=== PATIENT | female | born 1930 | race Caucasian/White ===

== ENCOUNTER 2016-05-14 09:53 | Outpatient (CLI) ==
[2015-05-07 02:30] VITALS: BMI 21.6
[2016-05-14 10:25] LABS: BILIRUBIN,URINE Negative (NEGATIVE); KETONES,URINE Negative (NEGATIVE); LEUKOCYTE ESTERASE ,URINE Trace (NEGATIVE); NITRITE,URINE Negative (NEGATIVE); PROTEIN,URINE Negative (NEGATIVE); URINE, BLOOD Negative (NEGATIVE)
[2016-05-14 10:27] LABS: ADD URINE MICROSCOPIC YES; BACTERIA,URINE TRACE (NOT PRESENT)
== END 2016-05-14 09:54 | disposition home or self-care (01) ==
LOC: NONPT 09:53
PROVIDERS: ATTEND Family Medicine
DX: N39.0 Urinary tract infection, site not specified (principal)
CPT/HCPCS: 81001

== ENCOUNTER 2016-05-16 15:22 | Inpatient (IN) ==
--- NOTE | 2016-05-16 15:47 | ED.PDOC ---
General ED Provider: Dr. SHIVANI TEJEDA Chief Complaint: Altered Mental Status Stated Complaint: mckayla is a shelter residetnt who was noted by staff with decreased mentation. This has been happenig over the last 3 weeks. Although yeterday she seemed alert but overall has been delicing. Family are now more open to hospice.She has recently been treated for UTI with rocephine. Her po intake has decraseed Time Seen by Physician: 15:42 Information Source: Family, [facility], EMT Exam Limitations: No limitations Primary Care Provider: FARRUKH LUIS Nursing and Triage Documentation Reviewed and Agree: Yes Neurological Complaint Exam - Weakness Complaint/Exam Last Known Well: 3 weeks ago Onset: Gradual Duration: 1-2 days Symptoms Are: Still present Timing: Constant Character: Reports: Unable to describe Associated Signs and Symptoms: Reports: Nausea. Denies: Vomiting Cardiac Risk Factors: Denies: Hypertension, Smoking CVA Risk Factors: Reports: Hypertension Glascow Coma Scale (see protocol): 9 Nystagmus Present: No Gag Reflex Present: Yes Focal Weakness: Present: None Differential Diagnoses: Other (CVA) Quality Indicator For Non-Traumatic Chest Pain/Syncope: EKG Performed Review of Systems - Review Of Systems Constitutional: Reports: Malaise, Weakness All Other Systems: Other (limited due to condition.) Past Medical History - Past Medical History Endocrine: Reports: None, Other (osteoporosis with fractures at age 44) Cardiovascular: Reports: Hypertension, A-Fib, Other ( pulmonary htn, syncope, bradycardia, cardiomegaly) Respiratory: Reports: None Hematological: Reports: None Gastrointestinal: Reports: None Genitourinary: Reports: UTI Neuro/Psych: Reports: TIA, CVA (3yrs ago2 yearas ago- poor speech since first episode, worse after each subsequesnt has had one sided weaknes?side is improved) Musculoskeletal: Reports: Arthritis Cancer: Reports: None Last Menstrual Period: menopause Other Pertinent Past Medical History: weakness, confusion - Surgical History General Surgical History: Reports: Hysterectomy - Family History Family History: Reports: Unknown - Social History Smoking Status: Never smoker Hx Substance Use: No Alcohol Screening: None Physical Exam - Physical Exam Appearance: Ill-appearing Ill-appearing: Moderate Eyes: DEWAYNE Neck: Supple Respiratory: Airway patent, Breath sounds clear, Breath sounds equal Cardiovascular: Tachycardia, Murmur GI/: Soft Musculoskeletal: Limited ROM Neurological: Alert to pain Physician Notification - Case Discussed Physician Notified: Dr Luis Time of Notification: 19:00 (ok to admit to the floor. ) Critical Care Note - Critical Care Note Total Time (mins): 45 Course - Course Hematology/Chemistry: 05/16/16 16:18 05/22/16 05:30 Orders, Labs, Meds: Lab Review 05/16/16 05/16/16 16:18 16:35 WBC 8.77 RBC 4.96 Hgb 15.6 Hct 50.7 H MCV 102.2 H MCH 31.5 H MCHC 30.8 L RDW Coeff of Jillian 17.2 H Plt Count 130 L Immature Gran % (Auto) 0.3 Neut % (Auto) 75.3 Lymph % (Auto) 16.3 [place] % (Auto) 6.8 Eos % (Auto) 0.7 Baso % (Auto) 0.6 Immature Gran # (Auto) 0.0 Neut # 6.6 Lymph # 1.4 [place] # 0.6 Eos # 0.1 Baso # 0.1 Sodium 158 H Potassium 7.9 H* Chloride 124 H Carbon Dioxide 26 Anion Gap 15.9 BUN 41 H Creatinine 0.92 Estimated GFR (MDRD) 58.00 BUN/Creatinine Ratio 44.56 Glucose 107 Calcium 10.4 H Total Bilirubin 0.83 AST 55 H ALT 37 Alkaline Phosphatase 111 Total Protein 7.9 Albumin 3.6 Globulin 4.3 Albumin/Globulin Ratio 0.84 Urine Color Yellow Urine Clarity Turbid Urine pH 7.0 Ur Specific Kimmell 1.025 Urine Protein 1+ Urine Glucose (UA) Negative Urine Ketones Trace Urine Blood 2+ Urine Nitrite Negative Urine Bilirubin 1+ Urine Urobilinogen 0.2 Ur Leukocyte Esterase 3+ Urine Microscopic RBC 5-10 Urine Microscopic WBC Tntc Ur Squamous Epith Cells Not present Amorphous Sediment 2+ Urine Bacteria 2+ Orders Category Date Time Status EKG-(ED ONLY) Stat CARDIO 05/16/16 17:04 Completed NEBULIZER TREATMENT Stat CARDIO 05/16/16 17:12 Completed ED CATHETER INSERTION AND CARE .ONCE EMERGENCY 05/16/16 16:13 Completed ED IV/MEDIPORT/POWERPORT .ONCE EMERGENCY 05/16/16 16:13 Completed CBC W/ AUTO DIFF Stat LAB 05/16/16 16:18 Completed COMPREHENSIVE METABOLIC PANEL Stat LAB 05/16/16 16:18 Completed URINALYSIS C & S IF INDICATED Stat LAB 05/16/16 16:35 Completed URINE CULTURE Stat LAB 05/16/16 16:35 Completed 0.9 % Sodium Chloride [Saline Flush] MEDS 05/16/16 16:13 Active 1 syr IVF PRN PRN Albuterol Sulfate 0.083% Neb [Albuterol 0.083% Neb] MEDS 05/16/16 17:12 Discontinued 1 vial NEB ONCE STA Piperacillin Sodium/Tazobactam [Zosyn] 2.25 gm MEDS 05/16/16 18:07 Discontinued 0.9 % Sodium Chloride [Sodium Chloride] 100 ml IV ONCE Sodium Chloride 0.9% [Sodium Chloride] 1,000 ml MEDS 05/16/16 16:13 Discontinued IV BOLUS Medications Generic Name Dose Route Start Last Admin Trade Name Freq PRN Reason Stop Dose Admin Acetaminophen/Hydrocodone Bitart 1 tab 05/16/16 21:51 05/21/16 20:20 Charlotte 5-325 PO 1 tab TID FLAKO Administration Amlodipine Besylate 2.5 mg 05/17/16 09:00 05/21/16 08:56 Norvasc PO 2.5 mg DAILY FLAKO Administration Bisacodyl 5 mg 05/17/16 09:00 05/21/16 08:56 Dulcolax PO 5 mg DAILY FLAKO Administration Calcium/Vitamin D 1 each 05/17/16 09:00 05/21/16 20:20 Calcium 500 + Vit D 200 Mg Tablet PO 1 each BID FLAKO Administration Furosemide 20 mg 05/16/16 22:05 Lasix Tab PO DAILY PRN EDEMA Gabapentin 100 mg 05/16/16 22:30 05/21/16 20:20 Neurontin PO 100 mg BEDTIME FLAKO Administration Potassium Chloride/Dextrose/Sod Cl 1,000 mls @ 125 mls/hr 05/18/16 12:00 03:36 D5%-1/2ns-Kcl 20 Meq/L Iv Lisa IV 125 mls/hr .Q8H FLAKO Administration Ampicillin Sodium 2 gm/ Sodium 100 mls @ 100 mls/hr 05/20/16 18:00 05/22/16 05:44 Chloride IV 100 mls/hr Q6HR FLAKO Administration Lisinopril 20 mg 05/17/16 09:00 05/21/16 08:55 Zestril PO 20 mg DAILY FLAKO Administration Magnesium Hydroxide 30 ml 05/16/16 19:19 Milk Of Magnesia PO DAILY PRN Constipation Ondansetron HCl 4 mg 05/16/16 19:07 Zofran 4 Mg/2 Ml IVP Q6H PRN Nausea / Vomiting Paroxetine HCl 20 mg 05/17/16 09:00 05/21/16 08:56 Paxil PO 20 mg DAILY FLAKO Administration Polyethylene Glycol 17 gm 05/16/16 19:19 Miralax PO DAILY PRN Constipation Rivaroxaban 15 mg 05/20/16 16:00 05/21/16 16:58 Xarelto PO 15 mg QPM FLAKO Administration Sodium Chloride 1 syr 05/16/16 16:13 05/18/16 11:32 Saline Flush IVF 1 syr PRN PRN Administration To flush IV Discontinued Medications Generic Name Dose Route Start Last Admin Trade Name Freq PRN Reason Stop Dose Admin Acetaminophen/Hydrocodone Bitart tab 05/16/16 21:00 Charlotte 5-325 PO TID FLAKO Albuterol Sulfate 1 vial 05/16/16 17:12 05/16/16 17:30 Albuterol 0.083% Neb NEB 05/16/16 17:13 1 vial ONCE STA Administration Sodium Chloride 1,000 mls @ 1,000 mls/hr 05/16/16 16:13 05/16/16 17:06 Sodium Chloride IV 05/16/16 17:12 150 mls/hr BOLUS STA Administration Piperacillin Sod/Tazobactam 100 mls @ 100 mls/hr 05/16/16 18:07 05/16/16 18: 24 Sod 2.25 gm/ Sodium Chloride IV 05/16/16 19:06 100 mls/hr ONCE STA Administration Dextrose/Sodium Chloride 1,000 mls @ 125 mls/hr 05/16/16 19:16 05/16/16 21:50 Dextrose 5%-1/2ns Iv Solution IV 05/17/16 03:15 125 mls/hr .Q8H STA Administration Piperacillin Sod/Tazobactam 100 mls @ 100 mls/hr 05/16/16 21:00 05/17/16 09: 32 Sod 2.25 gm/ Sodium Chloride IV Not Given Q8HR FLAKO Piperacillin Sod/Tazobactam 100 mls @ 100 mls/hr 05/17/16 07:30 05/19/16 11: 20 Sod 2.25 gm/ Sodium Chloride IV 100 mls/hr Q6HR FLAKO Administration Piperacillin Sod/Tazobactam 100 mls @ 100 mls/hr 05/19/16 18:00 05/20/16 11: 58 Sod 3.375 gm/ Sodium Chloride IV 100 mls/hr Q6HR FLAKO Administration Lidocaine HCl 0.02 ml 05/18/16 18:33 05/18/16 20:13 Lidocaine 1 % Amp 5 Ml (Sutures) ID 05/18/16 18:34 Not Given ONCE STA Vital Signs: Temp Pulse Resp BP Pulse Ox 05/16/16 15:22 98.3 F 107 H 16 93/70 93 L Departure - Departure Time of Disposition: 19:25 Disposition: ADMITTED INPATIENT Discharge Problem: Hyperkalemia, Dehydration UTI (urinary tract infection) Qualifiers: Urinary tract infection type: acute cystitis Hematuria presence: without hematuria Qualifier Code: (N30.00) Acute cystitis without hematuria Condition: Poor Pt referred to PMD for follow-up: No (admitted ) Allergies/Adverse Reactions: Allergies isradipine [From DynaCirc] Adverse Reaction (Verified 05/16/16 15:35) levofloxacin [From Levaquin] Adverse Reaction (Verified 05/16/16 15:35) sulfamethoxazole [From Bactrim] Adverse Reaction (Verified 05/16/16 15:35) trimethoprim [From Bactrim] Adverse Reaction (Verified 05/16/16 15:35) Home Medications: Ambulatory Orders Amlodipine Besylate [Norvasc] 2.5 mg PO DAILY 05/07/14 Bisacodyl [Dulcolax] 5 mg PO DAILY 05/07/14 Magnesium Hydroxide [Milk of Magnesia] 30 ml PO DAILY PRN 05/07/14 Ondansetron HCl [Zofran] 4 mg PO Q4H PRN 05/07/14 Calcium Carbonate/Vitamin D3 [Caltrate 600 Plus D3 Tablet] 1 each PO BID #30 Furosemide [Lasix Tab] 20 mg PO QDAC #30 05/12/14 Gabapentin [Neurontin] 100 mg PO BEDTIME #30 05/12/14 Lisinopril [Zestril] 20 mg PO DAILY #30 05/12/14 Potassium Chloride [Micro-K Cap] 30 meq PO DAILY #45 05/12/14 Hydrocodone/Acetaminophen [Charlotte 5-325 Tablet] 5 mg PO TID 01/24/15 Paroxetine HCl [Paxil] 20 mg PO DAILY 01/24/15 Polyethylene Glycol 3350 [Miralax] 17 gm PO DAILY PRN 05/16/16 Rivaroxaban [Xarelto] 15 mg PO DAILY 05/16/16 Disposition Discussed With: Family
[2016-05-16] MEDS ORDERED: SODIUM CHLORIDE 1,000 ML IV STA (16:13)
[2016-05-16] MEDS ORDERED: URO-JET MUCOUSMEMB STA (16:13)
[2016-05-16 16:40] LABS: BASOPHILS # (AUTO) 0.1 K/uL (0-0.2); BASOPHILS % (AUTO) 0.6 % (0.0-3.0); EOSINOPHILS # (AUTO) 0.1 K/ul (0.0-0.7); EOSINOPHILS % (AUTO) 0.7 % (0.0-7.0); HEMATOCRIT 50.7 % (37.0-47.0); HEMOGLOBIN 15.6 g/dl (12.0-16.0); IMMATURE GRANULOCYTE % (AUTO) 0.3 % (0.0-5.0); LYMPHOCYTES # (AUTO) 1.4 K/uL (0.60-3.4); LYMPHOCYTES % (AUTO) 16.3 (10.0-50.0); MEAN CORPUSCULAR HEMOGLOBIN 31.5 pg (27.0-31.0); MEAN CORPUSCULAR HGB CONC 30.8 (31.8-35.4); MEAN CORPUSCULAR VOLUME 102.2 fl (81.0-99.0); MONOCYTES # (AUTO) 0.6 K/uL (0.4-2.0); MONOCYTES % (AUTO) 6.8 (0-10); NEUTROPHILS # (AUTO) 6.6 K/ul (2.0-6.9); NEUTROPHILS % (AUTO) 75.3; PLATELET COUNT 130 10^3/uL (140-440); RED BLOOD COUNT 4.96 10^6/ul (4.20-5.40); WHITE BLOOD COUNT 8.77 K/ul (4.6-10.2)
[2016-05-16 16:52] LABS: ALBUMIN 3.6 g/dL (3.4-5.0); ALBUMIN/GLOBULIN RATIO 0.84; ANION GAP 15.9; BILIRUBIN,TOTAL 0.83 mg/dL (0.00-1.20); BUN/CREATININE RATIO 44.56; CALCIUM 10.4 mg/dL (8.2-10.2); CREATININE 0.92 mg/dL (0.60-1.30); TOTAL PROTEIN 7.9 g/dL (5.8-8.1)
[2016-05-16 16:55] LABS: POTASSIUM 7.9 mmol/L (3.5-5.10)
[2016-05-16 17:03] LABS: BILIRUBIN,URINE 1+ (NEGATIVE); KETONES,URINE Trace (NEGATIVE); LEUKOCYTE ESTERASE ,URINE 3+ (NEGATIVE); NITRITE,URINE Negative (NEGATIVE); PROTEIN,URINE 1+ (NEGATIVE); URINE, BLOOD 2+ (NEGATIVE)
[2016-05-16] MEDS ORDERED: DUONEB NEB STA (17:04)
[2016-05-16 17:06] LABS: ADD URINE MICROSCOPIC YES; BACTERIA,URINE 2+ (NOT PRESENT)
[2016-05-16] MEDS ORDERED: ALBUTEROL 0.083% NEB NEB STA (17:12)
[2016-05-16] MEDS ORDERED: ZOSYN 2.25 GM 2.25 GM in SODIUM CHLORIDE 100 ML IV STA (18:07)
[2016-05-16] MEDS ORDERED: ZOFRAN 4 MG/2 ML IVP PRN (19:07)
[2016-05-16] MEDS ORDERED: DEXTROSE 5%-1/2NS IV SOLUTION 1,000 ML IV STA (19:16)
[2016-05-16] MEDS ORDERED: MIRALAX PO PRN (19:19)
[2016-05-16] MEDS ORDERED: MILK OF MAGNESIA PO PRN (19:19)
[2016-05-16] MEDS ORDERED: NORCO 5-325 PO SCH (21:00)
[2016-05-16] MEDS ORDERED: LASIX TAB PO PRN (22:05)
[2016-05-16] MEDS: ZOSYN 2.25 GM 2.25 GM in SODIUM CHLORIDE 100 ML IV SCH (23:38)
[2016-05-17] MEDS ORDERED: CALCIUM 500 + VIT D 200 MG TABLET ONE (00:26)
[2016-05-17] MEDS: NEURONTIN PO SCH ×2 (00:37→22:25)
[2016-05-17] MEDS: NORCO 5-325 PO SCH ×4 (00:39→22:25)
[2016-05-17 01:50] VITALS: BMI 15.5
[2016-05-17 05:47] LABS: ANION GAP 11.2; BUN/CREATININE RATIO 54.05; CREATININE 0.74 mg/dL (0.60-1.30); POTASSIUM 4.2 mmol/L (3.5-5.10)
[2016-05-17] MEDS: ZOSYN 2.25 GM 2.25 GM in SODIUM CHLORIDE 100 ML IV SCH ×4 (08:00→17:53)
[2016-05-17] MEDS ORDERED: NON-FORMULARY MEDICATION (Calcium Carbonate/Vitamin D3 [Caltrate 600 Plus D3 Tablet] 1 EAC PO SCH (09:00)
[2016-05-17] MEDS ORDERED: NON-FORMULARY MEDICATION (Lisinopril [Zestril] 20 MG) PO SCH ×22 (09:00)
[2016-05-17] MEDS: DULCOLAX PO SCH (13:19)
[2016-05-17] MEDS: CALCIUM 500 + VIT D 200 MG TABLET PO SCH ×2 (13:19→22:25)
[2016-05-17] MEDS: NORVASC PO SCH (13:20)
[2016-05-17] MEDS: PAXIL PO SCH (13:21)
[2016-05-17] MEDS: ZESTRIL PO SCH (13:21)
[2016-05-18] MEDS: ZOSYN 2.25 GM 2.25 GM in SODIUM CHLORIDE 100 ML IV SCH ×5 (00:42→23:29)
[2016-05-18 05:35] LABS: ANION GAP 11.4; BUN/CREATININE RATIO 42.18; CALCIUM 8.9 mg/dL (8.2-10.2); CREATININE 0.64 mg/dL (0.60-1.30); POTASSIUM 3.4 mmol/L (3.5-5.10)
[2016-05-18] MEDS: CALCIUM 500 + VIT D 200 MG TABLET PO SCH ×2 (11:33→20:50)
[2016-05-18] MEDS: NORCO 5-325 PO SCH ×3 (11:33→20:50)
[2016-05-18] MEDS: DULCOLAX PO SCH (11:33)
[2016-05-18] MEDS: PAXIL PO SCH (11:34)
[2016-05-18] MEDS: ZESTRIL PO SCH (11:34)
[2016-05-18] MEDS: NORVASC PO SCH (11:34)
[2016-05-18] MEDS: D5%-1/2NS-KCL 20 MEQ/L IV SOL 1,000 ML IV SCH (12:12)
[2016-05-18] MEDS ORDERED: LIDOCAINE 1 % AMP 5 ML (SUTURES) ID STA (18:33)
[2016-05-18] MEDS ORDERED: LIDOCAINE 1% 20 ML MDV ONE (18:36)
--- NOTE | 2016-05-18 18:42 | ED.PDOC ---
Procedures - IV/Art Line Insertion Location: RT foot Invasive Line/IV Catheter Gauge: 22 Number of Attempts: 1 Blood Return Positive: Yes Invasive Line/IV Flushes Without Difficulty: Yes Conscious Sedation - Pre-op Assessment Weight: 93 lb Surgical History: hysterectomy - Medical History Past Medical History: Hypertension, CVA, A-FIb Other History: weakness, confusion, uti, pulmonary htn, syncope, bradycardia, DDD,cardiom - Physical Exam Heart Rate/Rhythm: Tachycardia, Irregular Rhythm
[2016-05-18] MEDS: NEURONTIN PO SCH (20:50)
[2016-05-19] MEDS: D5%-1/2NS-KCL 20 MEQ/L IV SOL 1,000 ML IV SCH ×3 (03:00→15:07)
[2016-05-19 05:51] LABS: ANION GAP 7.8; BUN/CREATININE RATIO 31.03; CALCIUM 8.1 mg/dL (8.2-10.2); CREATININE 0.58 mg/dL (0.60-1.30); POTASSIUM 3.8 mmol/L (3.5-5.10)
[2016-05-19] MEDS: ZOSYN 2.25 GM 2.25 GM in SODIUM CHLORIDE 100 ML IV SCH ×2 (06:03→11:20)
--- NOTE | 2016-05-19 07:27 | HP ---
cc: [facility] SOURCE: The source of this information is prior knowledge of the patient, review of her last discharge summary and discussion with family and personnel mentioned. The patient is not able to give any history. PATIENT PROFILE: Ms. Mcgill is a 85-year-old female, resident of [facility] (for 5 to 6 years). She was responsive only to noxious stimuli and would not follow commands. CHIEF COMPLAINT: "She is acting lethargic." BRIEF HISTORY OF PRESENT ILLNESS: Ms. Mcgill's nursing staff thought that she was becoming increasingly lethargic. I had been notified the day prior to admission and asked additional questions but the message must have been lost in transit. The day of notification I had her sent to this ER. She had multiple metabolic abnormalities with hyperkalemia at 7.9, hypernatremia at 158, hematocrit at 50.7 ; looked significantly dehydrated on labs. Her urine has significant abnormalities of 3+ bacteria, too numerous to count WBCs and 2+ bacteria, too numerous to count white cells and then 3+ nitrite. She has nearly back to back urinary tract infections at the senior living that have been impossible to stop and she is generally treated with Rocephin. 2009 she had back to back several strokes. It left her with significant neurologic deficits. To this point her family has wanted to treat with antibiotics but in talking to them now they are beginning to migrate toward perhaps stopping that. There was no mention of choking though this is always a possibility. There was no mention of cough. Her chest x-ray is not showing anything now. PAST HISTORY: CHILDHOOD: Unremarkable. ALLERGIES/INTOLERANCE: BACTRIM DS (lips swell), DYNACIRC (edema), LEVAQUIN ( lips swell) CURRENT MEDICATIONS: 1. Spencer 5 mg, one t.i.d. 2. Norvasc 2.5 mg one a day 3. Dulcolax 5 mg one a day 4. Calcium with Vitamin D 500/200 one b.i.d. 5. Lasix 20 mg daily p.r.n. (I am unaware of the senior living having a p.r.n. Lasix and how they choose to treat and use that) 6. Neurontin 100 mg at bedtime 7. Zestril 20 mg a day 8. Milk of Magnesia 30 cc daily p.r.n. constipation 9. Zofran 4 mg IV every 6 hours as needed 10. Paxil 20 mg a day 11. Miralax 17 gm a day if needed for constipation HOSPITALIZATIONS/SURGERIES/PROCEDURES: The last was here at 01/24 to 01/28/15; with lethargy secondary to UTI and other issues. Prior to that, 05/11 through 05/12/14 for nausea and vomiting that improved with conservative approach. She is 4, Para 3, AB 1. She has had at least three colonoscopies, the first with Dr. Miller, [facility], 12/15/09 and the second [facility], 07/25/03 to repeat in five years. A normal colonoscopy, [facility], Dr. Miller, 12/12/08 to repeat in 5 years. EDVIN and BSO plus appendix, [facility], Dr. Mcgovern, 1974. Left breast biopsy for benign reasons 1982. [facility] admissions include: 05/15/97 for hypotension; 12/20 through 12/22/00 for TIA and left weakness; 06/11 through 06/23/10 for swing bed post CVA; 09/20 through 09/24/10 for acute back pain; 09/24 through 10/03/10 TCU following a stroke; 06/30 through 07/06/11 for multiple issues; 07/06 through TCU. [facility] include: 05/21 through 06/11/10 for two CVA's. [facility] includes: 01/03 through 01/13/03 for lower extremity weakness; 06/17 through 06/19/11 for left knee arthritis. FAMILY HISTORY: Heart disease in father and mother. Pancreas cancer in father. Brain cancer in maternal uncle. Throat cancer in paternal uncle. Osteoporosis in mother and maternal aunt. Diabetes in maternal great grandfather. HABITS: Never smoked. SOCIAL HISTORY: Three children. 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 REVIEW OF SYSTEMS: GENERAL: I am unaware of there being any injury or fever at the senior living. INTEGUMENT: Nursing staff declines that there is any open sores or rash. HEENT: No mention of nasal congestion or drainage. NECK: No mention of any signs of pain. CHEST: No mention of any cough at the senior living. CARDIOVASCULAR: No mention of signs of chest pain and no recent leg edema. GI: No mention of diarrhea or melena. No vomiting. : She is chronically incontinent. MUSCULOSKELETAL/NEUROLOGIC: Her deficits are four quadrant weakness; diffuse contractures, very slurred speech leaving her with total dependency on ADLs. PHYSICAL EXAMINATION: VITALS: Temperature 97.3, pulse 81, respirations 18, BP 100/66, height 5'5", weight 125 lbs. GENERAL: Grossly unchanged from the usual appearance. No obvious distress. INTEGUMENT: Intact. No open sores particularly heels. Somewhat pale. Tongue is dry. HEENT: Pupils are sluggishly reactive, small and round. Gingival hyperplasia. Tongue is dry. Mucous membranes are moist. NECK: No visible palpable mass or thyroid. Appears nontender. CHEST: Decreased but clear. CARDIOVASCULAR: Irregular without murmur or carotid bruit. Distal pulses weak but present. GI: No obvious rebound, guarding, mass or tenderness. : Unremarkable externally for age with marked atrophy. MUSCULOSKELETAL/NEUROLOGIC: No verbalization, responds to noxious stimuli by grimacing or facial withdrawal. ASSESSMENT/PROBLEM LIST: 0. 85-year-old white female - advanced age 1. Allergies - intolerances see above. 2. Procedural history - see above 3. Family history - see above 4. 5, Para 3, AB 0 5. Menopausal - surgical -1974 6. Colon polyps by colonoscopy 7. Fibrocystic breast disease by biopsy 8. Chronic atrial fibrillation - rate control 9. History of multiple compression fractures 10. Anticoagulation - previous Coumadin then Pradaxa and now none 11. Spinal disk disease - cervical and lumbar 12. 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 Hiatal hernia 14. Hypertension history 15. LVH by echo 16. Pulmonary hypertension by echo 17. Chronic insomnia 18. Obstructive sleep apnea no longer treated 19. Previous Lanoxin therapy - since discontinued secondary to corrina arrhythmias 20. Severe osteoporosis with various interventions over the last 40 years 21. Chronic intermittent neck pain 22. Chronic intermittent lower back pain 23. History of TIAs 24. Right thalamic hemorrhage 05/21/10 (despite therapeutic INR) 25. 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 Late effects of CVA - speech 27. 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 Late effects of CVA - intermittent lethargy 29. Late effects of CVA - confusion 30. Mild cognitive impairment if not beyond 31. Vitamin B deficiency 32. Microvascular cerebral atherosclerosis 33. 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 Gait difficulty - complete lack of (secondary to degenerative and residual CVA issues) 35. Kyphoscoliosis - severe 36. Atrophic vaginitis 37. Recurring UTI 38. Urinary incontinence - chronic REASON FOR ADMISSION: # Lethargy # Hypernatremia - 158 # Hyperpotassemia - 7.9 # Dehydration (hematocrit 50.7) # Abnormal urine - possible UTI and even sepsis PLAN: Fluids and IV antibiotics - serial labs; and while still doing this the family requests non aggression in other manners. Medicines will be used as we can and as particularly needed. MTDD
[2016-05-19] MEDS: CALCIUM 500 + VIT D 200 MG TABLET PO SCH ×2 (11:13→21:38)
[2016-05-19] MEDS: NORVASC PO SCH (11:14)
[2016-05-19] MEDS: DULCOLAX PO SCH (11:14)
[2016-05-19] MEDS: PAXIL PO SCH (11:14)
[2016-05-19] MEDS: ZESTRIL PO SCH (11:14)
[2016-05-19] MEDS: NORCO 5-325 PO SCH ×3 (11:18→21:38)
--- NOTE | 2016-05-19 15:16 | RS.BEDDYS ---
Subjective Date of Evaluation: 05/19/16 Date of Onset/Injury/Change in Status: 05/16/16 Surgery Performed?: No Treatment Diagnosis: altered mental status, aspiration risk Prior Level of Function.....Patient was independent with: Caregiving (Pt received assistance at LT facility for daily needs. ) Current Level of Function: Pt dependent on caregiver for feeding. Nonverbal at time of evaluation. followed simple feeding and swallowing directions with verbal, tactile, and visual cues. Current Subjective/complaints:: Pt presented with sore throat as observed by facial grimace with every swallow response. Medical History Comments:: CVA 2010, 2013. UTI. dehydration. A-fib. TIA. HTN. pulmonary HTN. syncope. bradycardia. pulmonary HTN. Hx Home Medications: review [facility] chart for current list of all medications. Patient's Goals: Family stated [facility] to [facility]. General Information - General Denture Type: Not Applicable Ability to Follow Directions: Fair Is Patient able to Repeat Directions?: No Oral Expression Ability: Unable - Voice Voice Quality: Weak (minimal vocal response on command) Voice Loudness: Severely Soft/Quiet Oral-Facial Assessment - Face Facial Symmetry: Right Droop Facial Movement: Discoordinated Face Comment: Poor labial seal. involuntary lingual coordination. - Dental/Labial Mouth Occlusion: Normal Teeth Characteristics: Missing (Poor dental hygiene.) Lips Comment: Pt with poor labial seal. No labial seal with swallow response. - Lingual Protrusion: Weak (not able to protrude on command) Comments: Pt unable to follow directions for complete oral motor examination. Pt demonstrated involuntary movements when presented labial and lingual thermal stimulation. - Palate and Pharynx Soft Palate Description: Normal Color, Normal Arch Hard Palate Description: Normal Color Gag Reflex Response: No response observed. Velopharyngeal Movement: No response observed. Food Presentation - Solids Food Presented: Pureed (1/2 teaspoon over ten trials.) Behaviors/Comments: When DECISION UNIT RN presented spoon pt automatically opened oral cavity. Labial seal on spoon with residue post each trial. Pt with 2-4 second oral preparation and mastication with puree texture. Two second swallow delay with puree textures. Texture cleared with initial swallow. infrequent multiple swallows. - Liquids Liquid Presented: Thin (via 1/4, 1/2, and 3/4 teaspoon. Via felxible straw. No open cup) Behaviors/Comments: Pt responsive to spoon presented with thin liquids. No labial seal with swallow response. Swallow initiated within two to six seconds. 1x delayed dry cough post thin liquids. Via straw pt with adequate labial seal and suction of liquids. Pt responded with two to four second swallow delay. No overt s/s of aspiraiton via straw. - Recommendations: Dysphagia Evaluation Dietary Recommendations: Dysphagia Pureed Comments:: Pt to have 1:1 assistance with feeding. Pacing meal with 1/2 teaspoon size bites and alternating liquids and solids every three to four bites. Dysphagia Swallow Precautions/Strategies: Sitting Upright (90 deg) (Due to kyphosis, pt not approximately 90 degrees.), Liquids from Straw, Liquids from Spoon, Small Bites and Sips, Alternate Liquids/Solids - Summary Dysphagia Evaluation Summary: Pt to tolerate thin liquids via teaspoon or straw. Puree diet texture presented via 1/2 teaspoon size bites. Pace meal and assist pt with head position to decrease risk of aspiration. alternate solids and liquids every three to four bites. No open cups. monitor lung sounds post meals. Oral care post meals. Further Therapy Indicated?: Yes Rehab Potential: Fair (Due to responsiveness, ability to follow commands, level of alertness.) Functional Reporting G Codes: N/a Severity Impairment Rationale: N/a Plan Duration of Treatment: One Time Treatment Frequency of Treatment: One time treatment Anticipated [facility]charge [facility] Comments: DEC[facility] UNIT RN to re-assess at bedside in two days to determine readiness for upgrade to mechanical-soft diet texture. No therapy indicated. Re-assessment will be based on pt's medical stability and general improvements, or family request.
[2016-05-19] MEDS: ZOSYN 3.375 GM 3.375 GM in SODIUM CHLORIDE 100 ML IV SCH ×2 (17:00→23:26)
--- NOTE | 2016-05-19 19:32 | PCM.CMS ---
- Inpatient Certification Admission Date/Time: 05/16/16 19:00 Based on my knowledge of the patient's course, medical plan and current condition, I certify by my signature that the patient needs to be admitted for inpatient services. The hospital services are expected to last at least two midnights and I reasonably expect the patient to be discharged or transferred to another hospital within 96 hours after admission-based on the rationale that is explained in detail in the patient's medical record.
[2016-05-19] MEDS: NEURONTIN PO SCH (21:39)
[2016-05-20] MEDS: D5%-1/2NS-KCL 20 MEQ/L IV SOL 1,000 ML IV SCH ×4 (02:45→22:02)
[2016-05-20] MEDS: ZOSYN 3.375 GM 3.375 GM in SODIUM CHLORIDE 100 ML IV SCH ×2 (05:39→11:58)
[2016-05-20 06:00] LABS: ANION GAP 7.1; BUN/CREATININE RATIO 24.52; CALCIUM 7.8 mg/dL (8.2-10.2); CREATININE 0.53 mg/dL (0.60-1.30); POTASSIUM 4.1 mmol/L (3.5-5.10)
[2016-05-20] MEDS: ZESTRIL PO SCH (08:44)
[2016-05-20] MEDS: CALCIUM 500 + VIT D 200 MG TABLET PO SCH ×2 (08:44→20:34)
[2016-05-20] MEDS: PAXIL PO SCH (08:45)
[2016-05-20] MEDS: DULCOLAX PO SCH (08:45)
[2016-05-20] MEDS: NORCO 5-325 PO SCH ×3 (08:45→20:34)
[2016-05-20] MEDS: NORVASC PO SCH (08:45)
--- NOTE | 2016-05-20 09:20 | PN ---
DATE OF VISIT: 05/18/16 SUBJECTIVE: Admitted from [facility] with decreased fluid and caloric intake; upon arrival here even unable to eat. Significant abnormal urine and cultures pending; started empirically on Zofran. More alert during the night, actually took some sips. OBJECTIVE: V/S: Temperature 98.1, pulse 81, respiratory rate 21, BP 130/98. GENERAL: No obvious distress. INTEGUMENT: Mucous membranes now moist. No ankle edema. NECK: No mass or thyroid. CHEST: Clear. CARDIOVASCULAR: Regular without murmur or peripheral edema. GI: Nontender. NEUROLOGIC: Opens eyes; no verbalization or following of commands. : Urine growing ten to the fifth colonies to gram positive too early to read. LABS/X-RAYS: White count 8.7, hemoglobin 15.6 on the 7th; chemistries potassium 3.4, BUN 27, creatinine 0.64, sodium 154. ASSESSMENT: # HYPERNATREMIA # HYPERPOTASSEMIA (now low potassium) # DEHYDRATION # LATE EFFECTS OF CVA - MULTIPLE # LETHARGY - RELATED TO METABOLIC ABOVE # BACTERURIA AND OTHERS - PROBABLE UTI - POTENTIALLY EVEN SEPSIS PLAN: 1. Add potassium and follow. 2. Continue fluids. 3. Bedside swallow or equal; advance diet. 4. Awaiting urine culture. MTDD
--- NOTE | 2016-05-20 09:46 | PN ---
DATE OF VISIT: 05/19/16 SUBJECTIVE: The patient resides at [facility] with multiple neurologic deficits from strokes 5 to 6 years ago. She is aphasic or speaks very little. She has multiple contractures and is bedridden. She has developed an off and on urinary tract infection; she just recently had one and was treated with a 10 day course of Rocephin. She started developing lethargy and it worsened to quite an extent. She wasn't eating or drinking and was brought to this facility with very high potassium-sodium, clinical signs of dehydration and abnormal urine. She was empirically started on Zofran and given gentle fluids; as she has done before she has slowly became more alert with improvement in her metabolic abnormalities. She is back to eating some without choking. OBJECTIVE: V/S: Temperature 98.3, pulse 72, BP 97/62, respirations 16. GENERAL: No obvious distress; she makes eye contact with no verbalization. INTEGUMENT: Turgor is now adequate. Mucous membranes are moist. No ankle edema. NECK: Supple. CHEST: Clear. CARDIOVASCULAR: Regular without murmur. GI: Nontender. LABS/X-RAYS: Sodium now 149 (vs 158) with sodium now 149 (vs 158), potassium 3.8 (vs 7.9). GFR 99 vs 58. Urine is growing Enterococcus sensitive to Ampicillin, Linezolid , Penicillin, Tigecycline and Vancomycin; with other resistances. ASSESSMENT: # LETHARGY - METABOLIC ENCEPHALOPATHY IMPROVED # HYPERNATREMIA # DEHYDRATION # HYPERPOTASSEMIA # ACUTE RENAL INSUFFICIENCY # LATE EFFECTS OF CVA # UTI - ENTEROCOCCUS # RECURRENT UTI PLAN: 1. Continue same approach though we have increased her Zofran to a nonrenal insufficient dose. 2. We may try to wean to p.o. in another day or two though I am a little doubtful of the Ampicillin coverage. MTDD
[2016-05-20] MEDS: XARELTO PO SCH (17:30)
[2016-05-20] MEDS: AMPICILLIN SODIUM 2 GM in SODIUM CHLORIDE 100 ML IV SCH ×2 (17:31→23:11)
[2016-05-20] MEDS: NEURONTIN PO SCH (20:33)
[2016-05-21] MEDS: AMPICILLIN SODIUM 2 GM in SODIUM CHLORIDE 100 ML IV SCH ×3 (05:26→17:44)
[2016-05-21 06:30] LABS: BUN/CREATININE RATIO 13.72; CALCIUM 8.2 mg/dL (8.2-10.2); CREATININE 0.51 mg/dL (0.60-1.30)
--- NOTE | 2016-05-21 07:00 | PN ---
DATE OF VISIT: 05/20/16 SUBJECTIVE: Ms. Mcgill was [facility] from the [facility] after several days of not eating or drinking, was found to have multiple electrolyte abnormalities - hypernatremia, hyperphosphatemia. She was also found to have significant abnormal urine and since grew enterococcus. She was started on Zosyn; today we switched to Ampicillin as sensitivities came back showing sensitive to that. With improvement in her electrolytes and dehydration status resolving she has become back to her baseline (post stroke baseline with aphasia and bedridden) but has opened her eyes and started eating successfully checked by speech, she is eating adequately. OBJECTIVE: V/S: Temperature 96.9, pulse 82, BP 118/58, respirations 16. GENERAL: Grossly unchanged - no obvious distress. INTEGUMENT: Skin warm and dry. Mucous membranes now moist. No ankle edema. HEENT: Previous hemiplegia; no verbalization. GI: Nontender. LABS/X-RAYS: Sodium 144, potassium 4.1; note GFR at 109. ASSESSMENT: # Lethargy - metabolic encephalopathy from multiple issues - improved # Hypernatremia - resolved. # Hyperpotassemia - resolved. # Dehydration - resolved. # Acute renal insufficiency - resolved. # Late effects of CVA. # Enterococcus - UTI. # Recurrent UTI. PLAN: A day or two with her IV antibiotics before transitioning to oral. Continue to follow labs and clinical condition. MTDD
[2016-05-21] MEDS: D5%-1/2NS-KCL 20 MEQ/L IV SOL 1,000 ML IV SCH ×2 (08:18→16:58)
[2016-05-21] MEDS: CALCIUM 500 + VIT D 200 MG TABLET PO SCH ×2 (08:55→20:20)
[2016-05-21] MEDS: ZESTRIL PO SCH (08:55)
[2016-05-21] MEDS: DULCOLAX PO SCH (08:56)
[2016-05-21] MEDS: PAXIL PO SCH (08:56)
[2016-05-21] MEDS: NORVASC PO SCH (08:56)
[2016-05-21] MEDS: NORCO 5-325 PO SCH ×3 (08:57→20:20)
[2016-05-21] MEDS: XARELTO PO SCH (16:58)
[2016-05-21] MEDS: NEURONTIN PO SCH (20:20)
[2016-05-22] MEDS: AMPICILLIN SODIUM 2 GM in SODIUM CHLORIDE 100 ML IV SCH ×4 (00:25→18:39)
[2016-05-22] MEDS: D5%-1/2NS-KCL 20 MEQ/L IV SOL 1,000 ML IV SCH ×2 (03:36→12:49)
[2016-05-22 06:27] LABS: ANION GAP 5.2; BUN/CREATININE RATIO 9.61; CALCIUM 8.3 mg/dL (8.2-10.2); CREATININE 0.52 mg/dL (0.60-1.30); POTASSIUM 4.2 mmol/L (3.5-5.10)
[2016-05-22] MEDS: NORCO 5-325 PO SCH ×3 (08:35→20:35)
[2016-05-22] MEDS: NORVASC PO SCH (08:35)
[2016-05-22] MEDS: CALCIUM 500 + VIT D 200 MG TABLET PO SCH ×2 (08:36→20:35)
[2016-05-22] MEDS: ZESTRIL PO SCH (08:36)
[2016-05-22] MEDS: PAXIL PO SCH (08:36)
[2016-05-22] MEDS: DULCOLAX PO SCH (08:36)
[2016-05-22] MEDS: XARELTO PO SCH (17:20)
[2016-05-22] MEDS: NEURONTIN PO SCH (20:35)
[2016-05-23] MEDS: AMPICILLIN SODIUM 2 GM in SODIUM CHLORIDE 100 ML IV SCH ×2 (00:47→05:37)
[2016-05-23] MEDS: D5%-1/2NS-KCL 20 MEQ/L IV SOL 1,000 ML IV SCH (04:37)
[2016-05-23 06:54] LABS: BUN/CREATININE RATIO 8.33; CALCIUM 8.4 mg/dL (8.2-10.2); CREATININE 0.6 mg/dL (0.60-1.30)
[2016-05-23] MEDS: ZESTRIL PO SCH (09:06)
[2016-05-23] MEDS: PAXIL PO SCH (09:07)
[2016-05-23] MEDS: NORVASC PO SCH (09:07)
[2016-05-23] MEDS: CALCIUM 500 + VIT D 200 MG TABLET PO SCH ×2 (09:07→22:47)
[2016-05-23] MEDS: DULCOLAX PO SCH (09:07)
[2016-05-23] MEDS: NORCO 5-325 PO SCH ×3 (09:10→22:47)
[2016-05-23] MEDS: AMPICILLIN PO SCH ×2 (11:26→17:07)
[2016-05-23] MEDS: XARELTO PO SCH (17:07)
[2016-05-23] MEDS: NEURONTIN PO SCH (22:48)
[2016-05-24] MEDS: AMPICILLIN PO SCH ×4 (00:43→17:33)
[2016-05-24 08:07] LABS: ANION GAP 9.8; BUN/CREATININE RATIO 12.96; CALCIUM 8.5 mg/dL (8.2-10.2); CREATININE 0.54 mg/dL (0.60-1.30); POTASSIUM 3.8 mmol/L (3.5-5.10)
[2016-05-24] MEDS: NORCO 5-325 PO SCH ×3 (09:57→21:25)
[2016-05-24] MEDS: ZESTRIL PO SCH (09:57)
[2016-05-24] MEDS: PAXIL PO SCH (09:57)
[2016-05-24] MEDS: DULCOLAX PO SCH (09:58)
[2016-05-24] MEDS: CALCIUM 500 + VIT D 200 MG TABLET PO SCH ×2 (09:58→21:25)
[2016-05-24] MEDS: NORVASC PO SCH (09:58)
[2016-05-24] MEDS: XARELTO PO SCH (17:33)
[2016-05-24] MEDS: NEURONTIN PO SCH (21:25)
[2016-05-25] MEDS: AMPICILLIN PO SCH ×5 (00:10→23:02)
[2016-05-25 05:42] LABS: BUN/CREATININE RATIO 13.55; CALCIUM 8.8 mg/dL (8.2-10.2); CREATININE 0.59 mg/dL (0.60-1.30)
[2016-05-25] MEDS: CALCIUM 500 + VIT D 200 MG TABLET PO SCH ×2 (08:20→20:33)
[2016-05-25] MEDS: PAXIL PO SCH (08:20)
[2016-05-25] MEDS: NORVASC PO SCH (08:21)
[2016-05-25] MEDS: DULCOLAX PO SCH (08:24)
--- NOTE | 2016-05-25 14:20 | PN ---
DATE OF VISIT: 05/24/16 SUBJECTIVE: She was admitted from the [facility]-way, lethargic with metabolic encephalopathy ; she had hypernatremia; hyperpotassemia and clinically was quite dehydrated. She grew Enterobacter sensitive to Zofran which she received 3 to 4 days. She has transitioned to Ampicillin and has remained afebrile. She has on and off days of being less alert and not even eating or drinking well; with the possibilities coming from her pain medicine that her family wants her to get regularly. She had her Carrera removed yesterday; her bladder scan was around 100. OBJECTIVE: V/S: Temperature 97, pulse 79, respiratory rate 16, BP 130/70; all of these are stable the last 24 hours. GENERAL: Withdrawn, would not open eyes and follow commands. CHEST: Clear. CARDIOVASCULAR: S1, S2 regular with no peripheral edema. GI: Nontender. LABS/X-RAYS: Stable BUN 7, creatinine stable 0.54, GFR 107. ASSESSMENT: 0. 85-year-old white female - advanced age 1. Allergies - intolerances see above. 2. Procedural history - see above 3. Family history - see above 4. 5, Para 3, AB 0 5. Menopausal - surgical -1974 6. Colon polyps by colonoscopy 7. Fibrocystic breast disease by biopsy 8. Chronic atrial fibrillation - rate control 9. History of multiple compression fractures 10. Anticoagulation - previous Coumadin then Pradaxa and now none 11. Spinal disk disease - cervical and lumbar 12. 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 Hiatal hernia 14. Hypertension history 15. LVH by echo 16. Pulmonary hypertension by echo 17. Chronic insomnia 18. Obstructive sleep apnea no longer treated 19. Previous Lanoxin therapy - since discontinued secondary to corrina arrhythmias 20. Severe osteoporosis with various interventions over the last 40 years 21. Chronic intermittent neck pain 22. Chronic intermittent lower back pain 23. History of TIAs 24. Right thalamic hemorrhage 05/21/10 (despite therapeutic INR) 25. 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 Late effects of CVA - speech 27. 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 Late effects of CVA - intermittent lethargy 29. Late effects of CVA - confusion 30. Mild cognitive impairment if not beyond 31. Vitamin B deficiency 32. Microvascular cerebral atherosclerosis 33. 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 Gait difficulty - complete lack of (secondary to degenerative and residual CVA issues) 35. Kyposcoliosis - severe 36. Atrophic vaginitis 37. Recurring UTI 38. Urinary incontinence - chronic PLAN: 1. Maybe withdraw some of her pain medicine once she is back at the half-way and we can monitor for her pain level and see if she can get by on less. 2. Maybe to the half-way tomorrow if she takes in enough oral intake today to not raise the risk for dehydration and resumption of everything we dealt with that brought her here. CHELA
--- NOTE | 2016-05-25 14:55 | PN ---
DATE OF VISIT: 05/21/16 SUBJECTIVE: Ms. Mcgill is admitted from the assisted with lethargy. She had hypernatremia, hyperpotassemia, dehydration and her bacteruria probably had gone into a UTI. She was started on IV Zosyn and grew Enterobacter; sensitive to Ampicillin. She was switched to IV Ampicillin yesterday. Her electrolytes improved with fluids and management. She woke up, began to eat and was back to her baseline which has significant neurologic deficits from previous strokes, 5 to 6 years ago. This afternoon she has not been nearly as alert. She apparently had a decent breakfast and went down from there. The daughter says there are times that the assisted that she behaves this way. OBJECTIVE: V/S: Temperature 97.9, pulse 70, BP 115/76, respirations 16, 96% saturation on room air. GENERAL: Will not follow commands or make eye contact but no acute distress. INTEGUMENT: Turgur is adequate. Mucous membranes are moist. NECK: No tenderness. CHEST: Clear. CARDIOVASCULAR: Regular without murmur. GI: Nontender. LABS/X-RAYS: Abnormalities from chemistries: Chloride 111, creatinine 0.51, glucose 79. ASSESSMENT: # Lethary - at least initially had a component of metabolic encephalopathy but now I wonder about general neurolgic decline. # Hypernatremia - resolved. # Hyperpotassemia - resolved. # Dehydration - resolved. # Acute renal insufficiency - resolved. # Late effects of CVA. # Partially treated Enterococcus bacteruria/UTI. # Recurring UTI. PLAN: 1. My best input for the daughter is that we simply watch this tonight and see if it carries on with a pattern or defines itself better. 2. In the meantime we continue same antibiotics and fluids. MTDD
--- NOTE | 2016-05-25 16:22 | CT ---
EXAM: CT head without contrast. HISTORY: Mental status change. COMPARISON: 07/02/2011. TECHNIQUE: Multiple axial images of the brain were obtained from the skull base through the vertex without intravenous contrast. FINDINGS: There is a 0.3 cm focus of high density within the bouchra on axial image 10 and sagittal im age 20. This was not present previously. There is no adjacent edema. Otherwise, there is no intra cranial hemorrhage or extraaxial collection. The rashid-white differentiation is maintained without e vidence for acute large vascular territory infarction. Left temporal and parietal lobe encephalomal acia again noted along with areas of encephalomalacia in the basal ganglia bilaterally. There are ar eas of periventricular and subcortical white matter low attenuation. The cortical sulci and cerebra l ventricles are symmetrically enlarged. The basal cisterns are well visualized. There is no hydro cephalus, mass effect, or midline shift. The paranasal sinuses and mastoid air cells are clear. Th e calvarium is intact. Atherosclerotic calcifications are present near IMPRESSION: 1. Small focus of high density within the bouchra could be a calcification or small hemorrhage. Corre lation with MRI should be considered. At least a short-term follow-up head CT in 6-12 hours recomme nded. 2. Stable areas of encephalomalacia. 3. Chronic small vessel ischemic changes and atrophy. Comment: Findings were discussed with Dr. Luis's nurse at 4:17 p.m. on 05/25/2016.
[2016-05-25] MEDS: ZESTRIL PO SCH (17:20)
[2016-05-25] MEDS: NORCO 5-325 PO SCH ×2 (17:28→20:32)
[2016-05-25] MEDS: XARELTO PO SCH (17:28)
[2016-05-25] MEDS: NEURONTIN PO SCH (20:34)
[2016-05-26 04:54] LABS: ANION GAP 9.5; BUN/CREATININE RATIO 15.68; CALCIUM 8.5 mg/dL (8.2-10.2); CREATININE 0.51 mg/dL (0.60-1.30); POTASSIUM 3.5 mmol/L (3.5-5.10)
[2016-05-26] MEDS: AMPICILLIN PO SCH ×4 (05:00→23:03)
[2016-05-26] MEDS: NORVASC PO SCH (09:35)
[2016-05-26] MEDS: DULCOLAX PO SCH (09:35)
[2016-05-26] MEDS: CALCIUM 500 + VIT D 200 MG TABLET PO SCH ×2 (09:35→20:42)
[2016-05-26] MEDS: PAXIL PO SCH (09:37)
[2016-05-26] MEDS: ZESTRIL PO SCH (09:37)
[2016-05-26] MEDS: NORCO 5-325 PO SCH ×3 (09:39→20:41)
--- NOTE | 2016-05-26 15:23 | PN ---
DATE OF VISIT: 05/25/16 SUBJECTIVE: Ms. Mcgill was admitted from the group home with lethargy. She had hypernatremia, hyperpotassemia, dehydration and bacteruria that had probably gone into a UTI. She has recurring UTI's and chronic colonization. She was started on IV Zosyn and grew Enterobacter; sensitive to Ampicillin and she was switched to IV Ampicillin three to four days ago. Yesterday she was switched to p.o. Ampicillin. Her electrolytes with fluids improved; her lethargy resolved initially with the medical improvement. She began to eat and was back to her baseline. For the last three days, we have had spells where she becomes withdrawn; much less alert than other times. This would cause significant trouble with oral intake if this persisted. We have been ready to send her back to the group home if it wasn't for this latter problem. OBJECTIVE: V/S: Temperature 97 and remains afebrile, pulse 61 and generally normal. Blood pressure 111/72 and stable. Respirations 18. GENERAL: In no acute distress; sleep with eyes closed. Difficult to arouse; arouses to noxious stimuli minimally. CHEST: Clear. CARDIOVASCULAR: S1, S2 regular without murmur. MUSCULOSKELETAL: She does have four quadrant movement to noxious stimuli; limited fashion. Her chemistries today were completely normal. ASSESSMENT: #. LETHARGY-AT LEAST INITIALLY HAD METABOLIC ENCEPHALOPATHY AND THEN I WAS BEGINNING TO WONDER ABOUT ANY OTHER NEUROLOGIC ISSUES #. HYPERNATREMIA-RESOLVED #. HYPERPOTASSEMIA-RESOLVED #. DEHYDRATION-RESOLVED #. ACUTE RENAL INSUFFICIENCY-RESOLVED #. LATE EFFECTS OF CVA #. PARTIALLY TREATED ENTEROCOCCUS BACTERURIA/UTI #. RECURRING UTI'S PLAN: 1. We are going to stop her regular pain medicine and see if that makes a difference. 2. We may get a CT of her head later today. CHELA
--- NOTE | 2016-05-26 15:25 | PN ---
DATE OF VISIT: 05/23/16 SUBJECTIVE: She is admitted here after developing lethargy at the [facility]; she was found to have significant elevation of sodium and potassium and clinically looked dehydrated. Her metabolic encephalopathy improved with fluids; her urine as usual as abnormal and she grew enterococcus sensitive to the Zosyn; and also sensitive to ampicillin as she has no received the IV three days. She had one set back where she looked a little more lethargic one evening; seems to now be a pattern that she now does this intermittently and always eventually improves. Her son is here this morning to feed. OBJECTIVE: V/S: Temperature 98.8 and afebrile; pulse 76 and ready, respiratory rate 18 and steady, blood pressure 117/79 and steady. GENERAL: No obvious distress CHEST: Clear CARDIOVASCULAR: Regular. No peripheral edema, no murmur. GI: Non-tender NEUROLOGIC: She response by opening her eyes; smiling. No personal conversation. LABS/X-RAYS: BUN 5, creatinine 0.60 and otherwise unremarkable. ASSESSMENT: # Lethary- at least initially had a component of metabolic encephalopathy but now I wonder about general neurologic decline # Hypernatremia- Resolved # Hyperpotassemia- Resolved # Dehydration- Resolved # Acute Renal Insufficiency- Resolved # late effect of CVA # Partially treated enterococcus bacteruria/UTI # Recurring UTI PLAN: Transition from IV Ampicillin to PO Stop her Carrera and monitor for residuals MTDD
[2016-05-26] MEDS: XARELTO PO SCH (17:24)
[2016-05-26] MEDS: NEURONTIN PO SCH (20:42)
[2016-05-27 04:52] LABS: ANION GAP 8.6; BUN/CREATININE RATIO 12.72; CALCIUM 8.4 mg/dL (8.2-10.2); CREATININE 0.55 mg/dL (0.60-1.30); POTASSIUM 3.6 mmol/L (3.5-5.10)
[2016-05-27] MEDS: AMPICILLIN PO SCH ×2 (05:05→12:00)
[2016-05-27] MEDS: DULCOLAX PO SCH (08:25)
[2016-05-27] MEDS: ZESTRIL PO SCH (08:25)
[2016-05-27] MEDS: CALCIUM 500 + VIT D 200 MG TABLET PO SCH (08:26)
[2016-05-27] MEDS: PAXIL PO SCH (08:27)
[2016-05-27] MEDS: NORCO 5-325 PO SCH ×2 (08:27→14:58)
[2016-05-27] MEDS: NORVASC PO SCH (08:27)
--- NOTE | 2016-05-27 11:35 | PN ---
DATE OF VISIT: 05/26/16 SUBJECTIVE: Because of increasing lethargy she is brought to the ER where she is found to be hypernatremic, hyperpotassemic and clinically dehydrated. She had abnormal urine and subsequently grew Enterobacter sensitive to Zofran. She was transitioned to first IV Ampicillin and then p.o. Ampicillin. Electrolyte abnormalities and fluid status improved with fluids. She was back to eating and being her usual baseline. She has significant late effects of CVA with aphasia and marked contractures and extremity dysfunction. She was improving to the point we were considering discharge and then she started having episodes of lethargy. We subsequently brought it down to maybe her chronic pain medicine. We have cut it to half and she has actually woke up and has improved, has ate and drank better today (we were concerned that if she did not maintain fluids she would be a readmit for further dehydration, electrolyte abnormalities). She did have a CT of her head that showed a very small focus of something different from 2012 but the timeline on this was uncertain. OBJECTIVE: V/S: Temperature 97.3, pulse 78, respirations 18, BP 118/70. GENERAL: She opens eyes, smiles and makes eye contact. No purposeful conversation or response verbally. CHEST: Clear. CARDIOVASCULAR: Regular without murmur or peripheral edema. LABS/X-RAYS: Chemistries show potassium 3.5 versus 4; BUN and creatinine stable. Blood sugar 77. Telemetry monitoring atrial fibrillation. ASSESSMENT: # Lethargy - initially was metabolic encephalopathy but then we think the second phase of this was effects from her chronic pain medication. # Hypernatremia - resolved. # Hyperpotassemia - actually resolved to a now low. # Dehydration clinically - resolved. # Acute renal insufficiency - resolved. # Late effects of CVA. # Partially treated Enterococcus - bacteruria/UTI. # Recurring UTIs. # Chronic atrial fibrillation (foregoing anticoagulation with her medical history). # Anticoagulation - foregone due to her medical issues. PLAN: 1. Recheck potassium in the morning and if there is no change in condition we will go to the [facility] tomorrow. CHELA
--- NOTE | 2016-05-27 11:44 | PN ---
DATE OF VISIT: 05/23/16 SUBJECTIVE: She was admitted here after developing [facility]y [facility] the [facility]; was found to have significant elevation of sodium, potassium and clinically looked dehydrated. Her metabolic encephalopathy improved with fluids; her urine as usual was abnormal and she grew Enterococcus sensitive to the Zosyn; and also sensitive to Ampicillin as she has now received IV three days. She had one setback where she looked a little more lethargic one evening. It seems to be a pattern that she now does this intermittently and always eventually improves. A son is here this morning to feed. OBJECTIVE: V/S: Temperature 98.8 and afebrile, pulse 76 and steady, respirations 18 and steady, BP 117/79 and steady. GENERAL: No obvious distress. CHEST: Clear. CARDIOVASCULAR: Regular. No peripheral edema. No murmur. GI: Nontender. NEUROLOGIC: She responds by opening her eyes, smiling, no purposeful conversation. LABS/X-RAYS: Chemistries this morning show BUN 5, creatinine 0.60 and otherwise unremarkable. ASSESSMENT: # Lethargy - metabolic encephalopathy with multiple issues - improved and yesterday's lethargy is once again improved. She has a pattern of on and off being withdrawn of questionable significance (question seizure disorder, depression). # Hypernatremia - resolved. # Hyperpotassemia - resolved. # Dehydration - resolved. # Acute renal insufficiency - resolved. # Late effects of CVA. # Enterococcus UTI treated initially with Zofran now transitioned to Ampicillin IV. # Recurring UTI. PLAN: Transition from IV Ampicillin to p.o. and stop her Carrera and monitor for residuals. [facility]
--- NOTE | 2016-05-27 11:50 | PN ---
DATE OF VISIT: 05/22/16 SUBJECTIVE: She has become more alert. She has eaten well today. OBJECTIVE: V/S: Temperature 97.3, afebrile today. BP 142/88 and stable today. Pulse 78 and steady. Respirations 20. GENERAL: No obvious distress. CHEST: Clear. CARDIOVASCULAR: Regular without murmur. LABS/X-RAYS: Chemistries: BUN 5, creatinine 0.52. ASSESSMENT: # Lethargy - metabolic encephalopathy with multiple issues - improved and yesterday's lethargy is once again improved. She has a pattern of on and off being withdrawn of questionable significance (question seizure disorder, depression). # Hypernatremia - resolved. # Hyperpotassemia - resolved. # Dehydration - resolved. # Acute renal insufficiency - resolved. # Late effects of CVA. # Enterococcus UTI treated initially with Zofran now transitioned to Ampicillin IV. # Recurring UTI. PLAN: Watch for another day of stabiilty on this then maybe oral antibiotics and then back to the [facility]. [facility]LA
--- NOTE | 2016-05-27 11:59 | PN ---
DATE OF VISIT: 05/25/16 SUBJECTIVE: Ms. Mcgill was admitted from the [facility] with lethargy. She had hypernatremia, hyperpotassemia, dehydration and bacteruria, had probably gone into a UTI. She has recurring UTIs and chronic colonization. She was started on IV Zosyn and grew Enterobacter; sensitive to Ampicillin. She was switched to IV Ampicillin 3 to 4 days ago. Yesterday she was switched to p.o. Ampicillin. Her electrolytes with fluids improved. Her lethargy resolved initially with medical improvement. She began to eat and was back to her baseline. For the last three days she has had spells where she becomes withdrawn, much less alert than other times. This would cause significant trouble with oral intake if this persisted. We have been ready to send her back to the [facility] if it wasn't for this latter problem. OBJECTIVE: V/S: Temperature 97 and remains afebrile, pulse 61 and generally normal, blood pressure 111/72 and stable, respirations 18. GENERAL: No acute distress. Sleeps with eyes closed. Difficult to arouse. Arouses to noxious stimuli minimally. CHEST: Clear. CARDIOVASCULAR: S1, S2 regular without murmur. MUSCULOSKELETAL/NEUROLOGIC: She does have four quadrant movements to noxious stimuli; in limited fashion. ASSESSMENT: # Lethargy - at least initially had component of metabolic encephalopathy that I have now began to wonder about any other neurologic issues. # Hypernatremia - resolved. # Hyperpotassemia - resolved. # Dehydration - resolved. # Acute renal insufficiency - resolved. # Late effects of CVA. # Partially treated Enterococcus bacteruria - UTI. # Reoccurring UTIs. LABS: Chemistries today were completely normal. PLAN: 1. We are going to stop her regular pain medication and see if that makes a difference. 2. We may get a CT of her head later today. CHELA
--- NOTE | 2016-05-27 13:21 | PN ---
DATE OF VISIT: 05/26/16 SUBJECTIVE: Because of increase lethargy she is brought to the ER where she was found to be hypernatremic, hyperpotassemic and clinically dehydrated. She had abnormal urine and subsequently grew Enterobacter sensitive to Zosyn; she was transitioned first IV ampicillin and then PO ampicillin. Her electro abnormalities and fluid status improved with fluids. She back to eating and being her usual baseline; she has significant effects of CVA with aphasia and marked contractors and extremity disfunction. She was improving to the point we were considering discharge and then she started have episodes of Lethargy. We subsequently brought it down to maybe her chronic pain medicine; we cut it in half and she is actually woke up and has improved and has ate and drank better today( we were concerned that if she did not maintain fluids then she would be a readmit for further dehydration, electrolyte abnormality). She did have a CT of her head that showed a very small focus of something different from 2012 but the timeline on this was uncertain. OBJECTIVE: V/S: Temperature 97.3, pulse 78, respiratory rate 18, blood pressure 118/70. 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 Opens eyes and makes eye contact. No purposeful conversation or response verbally. CHEST: Clear CARDIOVASCULAR: Regular without murmur. Peripheral edema. LABS/X-RAYS: Chemistries show potassium 3.5 versus 4; BUN and Creatinine are stable. Blood sugar 77. ASSESSMENT: # Lethargy- initially was metabolic encephalopathy but then we think the second phase of this was effects from her chronic pain medication # Hypernatremia- resolved # Hyperpotassemia- actually resolved to the now low # Dehydration clinically-resolved # Acute renal insufficiency- resolved # Late affects of CVA # Partial treated enterococcus bacteruria- UTI # Recurring UTI # Chronic Atrial Fibrillation (forgoing anticoagulation with her medical history ) # Anticoagulation-Forgone due to medical issues. PLAN: Recheck Potassium in the morning; and if there is no change in condition she will go to the nursing tomorrow. CHELA
[2016-05-27 14:30] VITALS: BP 127/83; TEMP 98
--- NOTE | 2016-05-27 15:52 | DS ---
SOURCE: The source of this information is prior knowledge of the patient, review of her last discharge summary and discussion with family and personnel mentioned. The patient is not able to give any history. PATIENT PROFILE: Ms. Mcgill is a 85-year-old female, resident of [place] (for 5 to 6 years). She was responsive only to noxious stimuli and would not follow commands. CHIEF COMPLAINT: "She is acting lethargic." BRIEF HISTORY OF PRESENT ILLNESS: Ms. Mcgill's nursing staff thought that she was becoming increasingly lethargic. I had been notified the day prior to admission and asked additional questions but the message must have been lost in transit. The day of notification I had her sent to this ER. She had multiple metabolic abnormalities with hyperkalemia at 7.9, hypernatremia at 158, hematocrit at 50.7 ; looked significantly dehydrated on labs. Her urine has significant abnormalities of 3+ bacteria, too numerous to count WBCs and 2+ bacteria, too numerous to count white cells and then 3+ nitrite. She has nearly back to back [facility] the [facility] that have been impossible to stop and she is generally treated with Rocephin. 2009 she had back to back several strokes. It left her with significant neurologic deficits. To this point her family has wanted to treat with antibiotics but in talking to them now they are beginning to migrate toward perhaps stopping that. There was no mention of choking though this is always a possibility. There was no mention of cough. Her chest x-ray is not showing anything now. PAST HISTORY: CHILDHOOD: Unremarkable. ALLERGIES/INTOLERANCE: BACTRIM DS (lips swell), DYNACIRC (edema), LEVAQUIN ( lips swell) CURRENT MEDICATIONS: 1. Charlotte 5 mg, one t.i.d. 2. Norvasc 2.5 mg one a day 3. Dulcolax 5 mg one a day 4. Calcium with Vitamin D 500/200 one b.i.d. 5. Lasix 20 mg daily p.r.n. (I am unaware of the jail having a p.r.n. Lasix and how they choose to treat and use that) 6. Neurontin 100 mg at bedtime 7. Zestril 20 mg a day 8. Milk of Magnesia 30 cc daily p.r.n. constipation 9. Zofran 4 mg IV every 6 hours as needed 10. Paxil 20 mg a day 11. Miralax 17 gm a day if needed for constipation HOSPITALIZATIONS/SURGERIES/PROCEDURES: The last was here at 01/24 to 01/28/15; with lethargy secondary to UTI and other issues. Prior to that, 05/11 through 05/12/14 for nausea and vomiting that improved with conservative approach. She is 4, Para 3, AB 1. She has had at least three colonoscopies, the first with Mike Miles, 12/15/09 and the second Mike Miles, 07/25/03 to repeat in five years. A normal colonoscopy, [facility], Dr. Miller, 12/12/08 to repeat in 5 years. EDVIN and BSO plus appendix, [facility], Dr. Mcgovern, 1974. Left breast biopsy for benign reasons 1982. [facility] admissions include: 05/15/97 for hypotension; 12/20 through 12/22/00 for TIA and left weakness; 06/11 through 06/23/10 for swing bed post CVA; 09/20 through 09/24/10 for acute back pain; 09/24 through 10/03/10 TCU following a stroke; 06/30 through 07/06/11 for multiple issues; 07/06 through TCU. [facility] include: 05/21 through 06/11/10 for two CVA's. [facility] includes: 01/03 through 01/13/03 for lower extremity weakness; 06/17 through 06/19/11 for left knee arthritis. FAMILY HISTORY: Heart disease in father and mother. Pancreas cancer in father. Brain cancer in maternal uncle. Throat cancer in paternal uncle. Osteoporosis in mother and maternal aunt. Diabetes in maternal great grandfather. HABITS: Never smoked. SOCIAL HISTORY: Three children. 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 REVIEW OF SYSTEMS: GENERAL: I am unaware of there being any injury or fever at the jail. INTEGUMENT: Nursing staff declines that there is any open sores or rash. HEENT: No mention of nasal congestion or drainage. NECK: No mention of any signs of pain. CHEST: No mention of any cough at the jail. CARDIOVASCULAR: No mention of signs of chest pain and no recent leg edema. GI: No mention of diarrhea or melena. No vomiting. : She is chronically incontinent. MUSCULOSKELETAL/NEUROLOGIC: Her deficits are four quadrant weakness; diffuse contractures, very slurred speech leaving her with total dependency on ADLs. PHYSICAL EXAMINATION: VITALS: Temperature 97.3, pulse 81, respirations 18, BP 100/66, height 5'5", weight 125 lbs. GENERAL: Grossly unchanged from the usual appearance. No obvious distress. INTEGUMENT: Intact. No open sores particularly heels. Somewhat pale. Tongue is dry. HEENT: Pupils are sluggishly reactive, small and round. Gingival hyperplasia. Tongue is dry. Mucous membranes are moist. NECK: No visible palpable mass or thyroid. Appears nontender. CHEST: Decreased but clear. CARDIOVASCULAR: Irregular without murmur or carotid bruit. Distal pulses weak but present. GI: No obvious rebound, guarding, mass or tenderness. : Unremarkable externally for age with marked atrophy. MUSCULOSKELETAL/NEUROLOGIC: No verbalization, responds to noxious stimuli by grimacing or facial withdrawal. ASSESSMENT/PROBLEM LIST: 0. 85-year-old white female - advanced age 1. Allergies - intolerances see above. 2. Procedural history - see above 3. Family history - see above 4. 5, Para 3, AB 0 5. Menopausal - surgical -1974 6. Colon polyps by colonoscopy 7. Fibrocystic breast disease by biopsy 8. Chronic atrial fibrillation - rate control 9. History of multiple compression fractures 10. Anticoagulation - previous Coumadin then Pradaxa and now none 11. Spinal disk disease - cervical and lumbar 12. 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 Hiatal hernia 14. Hypertension history 15. LVH by echo 16. Pulmonary hypertension by echo 17. Chronic insomnia 18. Obstructive sleep apnea no longer treated 19. Previous Lanoxin therapy - since discontinued secondary to corrina arrhythmias 20. Severe osteoporosis with various interventions over the last 40 years 21. Chronic intermittent neck pain 22. Chronic intermittent lower back pain 23. History of TIAs 24. Right thalamic hemorrhage 05/21/10 (despite therapeutic INR) 25. 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 Late effects of CVA - speech 27. 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 Late effects of CVA - intermittent lethargy 29. Late effects of CVA - confusion 30. Mild cognitive impairment if not beyond 31. Vitamin B deficiency 32. Microvascular cerebral atherosclerosis 33. 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 Gait difficulty - complete lack of (secondary to degenerative and residual CVA issues) 35. Kyphoscoliosis - severe 36. Atrophic vaginitis 37. Recurring UTI 38. Urinary incontinence - chronic REASON FOR ADMISSION: # Lethargy # Hypernatremia - 158 # Hyperpotassemia - 7.9 # Dehydration (hematocrit 50.7) # Abnormal urine - possible UTI and even sepsis HOSPITAL COURSE: Mrs. Mcgill was given IV fluids and over two to three days corrected her hypernatremia, hyperpotassemia and her clinical dehydration. She woke up through process and became more alert; started eating and drinking again. Her IV was weaned away and discontinued. She was added Zosyn to the process; she grew Enterobacter sensitive to this but also sensitive to ampicillin and she was transitioned to that IV first; then orally. Clinically she was moving a long and potentially ready to go to the jail; then she became increasingly lethargy on and off. A CT of her head was done and it was a small focus of high density in the bouchra with possible calcification; it was uncertain of wither this area was new or old. It was recommended that she have a repeat CT in 6-12 hour or an MRI. At the same time I cut back on her pain medication; she began to improve and the family didn't want to do anymore imagines studies. Her ability to stay awake, eat and drink remains; she is therefore being returned to the nursing for a uncertain course. Her recent pattern of relapsing UTI maybe something that we can't get over. She had a bladder scan of only 105 and we thought she could clinically handle this. She started with a white count of 8.77, hgb 15.6, MCV 102; sodium 158, potassium 7.8 and GFR 58; urine was 2+ blood, 3+ leukocyte esterase, 2+ bacteria and 2 number white cells; again the course of her stay her potassium went down to 3.4 and fluctuated up and down; her GFR has remained quite stable. Her protein's were obviously low; her blood sugars remained stable. So finally with her improved we elected to return her to the jail. DISCHARGE ASSESSMENT/PROBLEM LIST (CHANGED FROM ADMISSION): # Lethargy- initial component metabolic encephalopathy and later a possible over medication with pain medication # Hypernatremia- resolved # Hyperpotassemia- resolved # Dehydration (clinical findings for)- resolved # Acute renal insufficiency- resolved # Enterococcus UTI- treating # Late effects CVA # Recurring UTI PLAN: 1. Return to the [facility] 2. Resume previous jail orders 3. Medications A. Ampicillin 500mg Q 6 hours for 10 days B. Diminish Charlotte 5 from one to half tablet three times a day and hold if sedation 4. Laboratories A. Repeat urine culture after completion of Amoxicillin B. BNP in 5-7 days- business days. PROGNOSIS: Guarded CONDITION: Stable improved. MTDD
== END 2016-05-27 16:47 | DRG 689 ==
LOC: ED 15:22 → MEDSURG B 19:00
PROVIDERS: ADMIT Family Medicine; ATTEND Family Medicine
DX: N30.00 Acute cystitis without hematuria (principal); G93.41 Metabolic encephalopathy; E87.0 Hyperosmolality and hypernatremia; E87.5 Hyperkalemia; E86.0 Dehydration; I48.2 Chronic atrial fibrillation; T50.995A Adverse effect of other drugs, medicaments and biological substances, initial encounter; R41.82 Altered mental status, unspecified; N28.9 Disorder of kidney and ureter, unspecified; N39.498 Other specified urinary incontinence; R93.0 Abnormal findings on diagnostic imaging of skull and head, not elsewhere classified; I69.359 Hemiplegia and hemiparesis following cerebral infarction affecting unspecified side; I69.328 Other speech and language deficits following cerebral infarction; R53.83 Other fatigue; B95.2 Enterococcus as the cause of diseases classified elsewhere; Z16.39 Resistance to other specified antimicrobial drug; Z87.440 Personal history of urinary (tract) infections; Z79.01 Long term (current) use of anticoagulants; Z79.899 Other long term (current) drug therapy
CPT/HCPCS: 36415; 80048; 80053; 81001; 85025; 87081; 87086; 87186; 93005; 93010; 94640; 96361; 96365; 97802; 99284

== ENCOUNTER 2016-05-27 16:46 | Outpatient (CLI) | payer OTHER | END 2016-05-27 16:47 | LOC: AMBL 16:46 | PROVIDERS: ATTEND Emergency Medicine | DX: N39.0 Urinary tract infection, site not specified (principal); E86.0 Dehydration ==

== ENCOUNTER 2016-06-03 10:52 | Outpatient (CLI) ==
[2016-06-03 11:14] LABS: ANION GAP 12.1; BUN/CREATININE RATIO 21.05; CREATININE 0.57 mg/dL (0.60-1.30); POTASSIUM 4.1 mmol/L (3.5-5.10)
== END 2016-06-03 10:53 | disposition home or self-care (01) ==
LOC: NONPT 10:52
PROVIDERS: ATTEND Family Medicine
DX: E86.0 Dehydration (principal)
CPT/HCPCS: 80048

== ENCOUNTER 2016-06-08 09:08 | Outpatient (CLI) | payer OTHER ==
[2016-06-08 09:23] LABS: BILIRUBIN,URINE Negative (NEGATIVE); KETONES,URINE Negative (NEGATIVE); LEUKOCYTE ESTERASE ,URINE Trace (NEGATIVE); NITRITE,URINE Negative (NEGATIVE); PROTEIN,URINE Negative (NEGATIVE); URINE, BLOOD Trace-intact (NEGATIVE)
[2016-06-08 09:26] LABS: ADD URINE MICROSCOPIC YES
== END 2016-06-08 09:09 | disposition home or self-care (01) ==
LOC: LAB 09:08
PROVIDERS: ATTEND Family Medicine
DX: N39.0 Urinary tract infection, site not specified (principal); Z09 Encounter for follow-up examination after completed treatment for conditions other than malignant neoplasm
CPT/HCPCS: 81001

== ENCOUNTER 2016-07-14 08:28 | Outpatient (CLI) ==
[2016-07-14 10:07] LABS: BILIRUBIN,URINE 1+ (NEGATIVE); KETONES,URINE Trace (NEGATIVE); LEUKOCYTE ESTERASE ,URINE Negative (NEGATIVE); NITRITE,URINE Negative (NEGATIVE); PH,URINE 5.5 (5-9); PROTEIN,URINE Trace (NEGATIVE); URINE, BLOOD 1+ (NEGATIVE)
[2016-07-14 10:08] LABS: ADD URINE MICROSCOPIC YES
== END 2016-07-14 08:29 | disposition home or self-care (01) ==
LOC: NONPT 08:28
PROVIDERS: ATTEND Family Medicine
DX: N39.0 Urinary tract infection, site not specified (principal)
CPT/HCPCS: 81001